=== PATIENT | male | born 1990 | race Caucasian/White ===

== ENCOUNTER 2020-12-19 14:18 | Inpatient (IN) ==
[2020-12-19 15:14] LABS: ABS Basophils 0.1 10^3/ul (0-0.2); ABS Eosinophils 0.1 10^3/ul (0-0.6); ABS Lymphocytes 1.8 10^3/ul (1.0-4.8); ABS Monocytes 0.5 10^3/ul (0-0.8); ABS Neutrophils 5.3 10^3/ul (1.5-7.7); Eosinophil % 1.5 %; Hematocrit 43 % (42-52); Hemoglobin 14.5 g/dL (14.0-18.0); Lymphocyte % 22.8 %; Mean Corpuscular HGB Conc 34 g/dL (31-36); Mean Corpuscular Hemoglobin 31 pg (27-31); Mean Corpuscular Volume 92 fL (80-94); Platelet Count 277 10^3/uL (150-450); Red Blood Count 4.68 10^6 /uL (4.18-5.48); Red Cell Distribution Width 13 % (10-15); White Blood Count 7.7 10^3/uL (3.5-10.8)
[2020-12-19 15:36] LABS: ALT 20 U/L (7-52); AST 25 U/L (13-39); Albumin 4.3 g/dL (3.2-5.2); Albumin/Globulin Ratio 1.5 (1-3); Alkaline Phosphatase 62 U/L (34-104); Anion Gap 6 mmol/L (2-11); BUN/Creatinine Ratio 15.8 (8-20); Blood Urea Nitrogen 19 mg/dL (6-24); CO2 Carbon Dioxide 27 mmol/L (22-32); Calcium 9.4 mg/dL (8.6-10.3); Chloride 105 mmol/L (101-111); EGFR African American 85.4 (>60); EGFR Non-African American 70.6 (>60); Globulin 2.8 g/dL (2-4); Glucose 102 mg/dL (70-100); Potassium 4.2 mmol/L (3.5-5.0); Sodium 138 mmol/L (135-145); Total Protein 7.1 g/dL (6.4-8.9)
[2020-12-19 15:43] LABS: Alcohol, S < 10 mg/dL (<10); Salicylate < 2.50 mg/dL (<30)
[2020-12-19 15:45] LABS: Acetaminophen < 15 mcg/mL
[2020-12-19 15:51] LABS: TSH Ultra Thyroid Stim Horm 1.86 mcIU/mL (0.34-5.60)
[2020-12-19] MEDS ORDERED: LORazepam 2 mg VIAL 1 ml ONE (16:26)
[2020-12-19 17:36] LABS: Urine Benzodiazepine Screen None Detected (None Detect); Urine Cannabinoids Screen Presumptive Positive (None Detect); Urine Opiates Screen None Detected (None Detect)
[2020-12-19 17:41] LABS: Urine Appearance Clear; Urine Bilirubin Negative (Negative); Urine Blood Negative (Negative); Urine Color Yellow; Urine Glucose Negative (Negative); Urine Ketones Negative (Negative); Urine Nitrite Negative (Negative); Urine Protein Negative (Negative); Urine Specific Gravity 1.019 (1.002-1.030); Urine Urobilinogen Negative (Negative)
[2020-12-19] MEDS ORDERED: diPHENhydraMINE IV 50 MG/ML 1 ml VIAL (BENADRYL) IM ONE (18:55)
[2020-12-19] MEDS ORDERED: Lorazepam PYXIS KEY PRN (18:56)
[2020-12-19] MEDS ORDERED: LORazepam 2 mg VIAL 1 ml IM ONE (18:56)
[2020-12-19] MEDS ORDERED: Haloperidol 5 mg/ml SDV IV/IM 5 MG/ML AMP IM ONE (18:56)
[2020-12-21] MEDS: Nicotine PATCH 21 MG/24 HR PATCH TRANSDERM SCH ×2 (00:50→09:20)
[2020-12-21] MEDS ORDERED: chlorproMAZINE 25 MG/ML 2 ML (50 MG) ONE ×3 (12:15→12:34)
[2020-12-21] MEDS ORDERED: chlorproMAZINE 25 MG/ML 2 ML (50 MG) IM ONE ×2 (12:40→12:42)
[2020-12-22] MEDS: Nicotine GUM 4MG FRUIT FLAVOR PO PRN (14:00)
[2020-12-22] MEDS: Nicotine PATCH 21 MG/24 HR PATCH TRANSDERM SCH (17:29)
[2020-12-23] MEDS: Nicotine PATCH 21 MG/24 HR PATCH TRANSDERM SCH (09:24)
[2020-12-24] MEDS: Nicotine PATCH 21 MG/24 HR PATCH TRANSDERM SCH (08:37)
[2020-12-24] MEDS: Nicotine GUM 4MG FRUIT FLAVOR PO PRN (08:38)
[2020-12-25] MEDS ORDERED: Paliperidone SUSTENNA 234 MG/1.5 ML IM ONE (09:00)
[2020-12-25] MEDS: Nicotine PATCH 21 MG/24 HR PATCH TRANSDERM SCH (11:01)
[2020-12-25] MEDS: Nicotine GUM 4MG FRUIT FLAVOR PO PRN ×2 (13:35→19:55)
[2020-12-26] MEDS: Nicotine GUM 4MG FRUIT FLAVOR PO PRN (10:07)
[2020-12-26] MEDS: Nicotine PATCH 21 MG/24 HR PATCH TRANSDERM SCH (10:25)
[2020-12-27] MEDS: Nicotine GUM 4MG FRUIT FLAVOR PO PRN (08:55)
[2020-12-27] MEDS: Nicotine PATCH 21 MG/24 HR PATCH TRANSDERM SCH (08:57)
[2020-12-27 14:39] LABS: ABS Basophils 0.1 10^3/ul (0-0.2); ABS Eosinophils 0.2 10^3/ul (0-0.6); ABS Lymphocytes 1.6 10^3/ul (1.0-4.8); ABS Monocytes 0.8 10^3/ul (0-0.8); ABS Neutrophils 5.5 10^3/ul (1.5-7.7); Eosinophil % 2.5 %; Hematocrit 41 % (42-52); Hemoglobin 13.9 g/dL (14.0-18.0); Mean Corpuscular HGB Conc 34 g/dL (31-36); Mean Corpuscular Hemoglobin 31 pg (27-31); Mean Corpuscular Volume 92 fL (80-94); Mean Platelet Volume 7.5 fL (7.4-10.4); Platelet Count 287 10^3/uL (150-450); Red Blood Count 4.49 10^6 /uL (4.18-5.48); Red Cell Distribution Width 13 % (10-15); White Blood Count 8.2 10^3/uL (3.5-10.8)
[2020-12-27 15:05] LABS: Albumin/Globulin Ratio 1.3 (1-3); Calcium 9.6 mg/dL (8.6-10.3); EGFR African American 116.1 (>60); Potassium 4.6 mmol/L (3.5-5.0); Total Bilirubin 0.4 mg/dL (0.2-1.0)
[2020-12-27 17:10] VITALS: BP 151/88
[2020-12-28] MEDS ORDERED: Paliperidone SUSTENNA 156 MG/1 ML IM ONE ×2 (09:00→10:00)
[2020-12-28] MEDS: Nicotine PATCH 21 MG/24 HR PATCH TRANSDERM SCH (11:06)
== END 2020-12-28 13:09 | DRG 885 ==
LOC: ED 14:18 → BSU 12-20 08:58 → ED 12-20 12:27 → BSU 12-28 00:44
PROVIDERS: ADMIT Psychiatry & Neurology Psychiatry; ATTEND Psychiatry & Neurology Psychiatry

== ENCOUNTER 2021-09-26 06:13 | Inpatient (IN) ==
[2021-09-26] MEDS ORDERED: Haloperidol 5 mg/ml SDV IV/IM 5 MG/ML AMP IM ONE (06:44)
[2021-09-26] MEDS ORDERED: diPHENhydraMINE IV 50 MG/ML 1 ml VIAL (BENADRYL) IM ONE (06:44)
[2021-09-26] MEDS ORDERED: Lorazepam PYXIS KEY PRN (06:44)
[2021-09-26] MEDS ORDERED: LORazepam 2 mg VIAL 1 ml IM ONE (06:44)
[2021-09-26 07:15] LABS: ABS Basophils 0.1 10^3/ul (0-0.2); ABS Eosinophils 0.1 10^3/ul (0-0.6); ABS Lymphocytes 2.1 10^3/ul (1.0-4.8); ABS Monocytes 0.8 10^3/ul (0-0.8); ABS Neutrophils 8.5 10^3/ul (1.5-7.7); Eosinophil % 0.7 %; Hematocrit 45 % (42-52); Hemoglobin 15.3 g/dL (14.0-18.0); Lymphocyte % 18.4 %; Mean Corpuscular HGB Conc 34 g/dL (31-36); Mean Corpuscular Hemoglobin 31 pg (27-31); Mean Corpuscular Volume 92 fL (80-94); Mean Platelet Volume 8.2 fL (7.4-10.4); Nucleated Red Blood Cells % 0.1; Platelet Count 331 10^3/uL (150-450); Red Blood Count 4.88 10^6 /uL (4.18-5.48); Red Cell Distribution Width 14 % (10-15); White Blood Count 11.6 10^3/uL (3.5-10.8)
[2021-09-26 07:32] LABS: ALT 56 U/L (7-52); AST 31 U/L (13-39); Albumin 4.5 g/dL (3.2-5.2); Albumin/Globulin Ratio 1.5 (1-3); Alkaline Phosphatase 63 U/L (35-149); Anion Gap 10 mmol/L (2-11); Blood Urea Nitrogen 21 mg/dL (6-24); CO2 Carbon Dioxide 25 mmol/L (22-32); Calcium 10.1 mg/dL (8.6-10.3); Chloride 100 mmol/L (101-111); Glucose 133 mg/dL (70-100); Potassium 4.4 mmol/L (3.5-5.0); Sodium 135 mmol/L (135-145); Total Protein 7.5 g/dL (6.4-8.9); eGFR CKD-EPI 86.7 (>60)
[2021-09-26 08:15] LABS: Acetaminophen < 15 mcg/mL; Alcohol, S < 13 mg/dL (<13); Salicylate < 2.50 mg/dL (<30)
[2021-09-26 08:31] LABS: TSH Ultra Thyroid Stim Horm 1.91 mcIU/mL (0.34-5.60)
[2021-09-26] MEDS ORDERED: chlorproMAZINE TAB 50 MG Q6H PRN AGITATION PO (23:00)
[2021-09-26] MEDS ORDERED: Haloperidol 5 mg/ml SDV IV/IM 5 MG/ML AMP ONE (23:31)
[2021-09-26] MEDS ORDERED: diPHENhydraMINE IV 50 MG/ML 1 ml VIAL (BENADRYL) ONE (23:31)
[2021-09-26] MEDS ORDERED: Lorazepam PYXIS KEY ONE (23:31)
[2021-09-26] MEDS ORDERED: LORazepam 2 mg VIAL 1 ml ONE (23:32)
[2021-09-26] MEDS ORDERED: Al Hydrox/Mg Hydrox/Simet LIQ 30 ML UDC PO PRN (23:59)
[2021-09-27] MEDS ORDERED: Nicotine GUM 4MG FRUIT FLAVOR PO ONE ×2 (11:30→14:37)
[2021-09-27] MEDS: Vitamin THERAPEUTIC TAB PO SCH (11:43)
[2021-09-27] MEDS ORDERED: Nicotine GUM 2MG FRUIT FLAVOR PO ONE (14:37)
[2021-09-27] MEDS ORDERED: Nicotine PATCH 21 MG/24 HR PATCH ONE (14:37)
[2021-09-27] MEDS: Nicotine GUM 4MG FRUIT FLAVOR PO PRN (14:48)
[2021-09-27] MEDS: Nicotine PATCH 21 MG/24 HR PATCH TRANSDERM SCH (14:51)
[2021-09-27] MEDS: Nicotine Lozenge mini 4 MG LOZNG.MINI MT PRN (16:22)
[2021-09-28] MEDS: Vitamin THERAPEUTIC TAB PO SCH (09:22)
[2021-09-28] MEDS: Nicotine PATCH 21 MG/24 HR PATCH TRANSDERM SCH (09:43)
[2021-09-28] MEDS: Nicotine Lozenge mini 4 MG LOZNG.MINI MT PRN (10:29)
[2021-09-28] MEDS: Nicotine GUM 4MG FRUIT FLAVOR PO PRN ×2 (17:20→20:07)
[2021-09-29] MEDS: Nicotine GUM 4MG FRUIT FLAVOR PO PRN ×2 (12:19→17:05)
[2021-09-29] MEDS: Vitamin THERAPEUTIC TAB PO SCH (12:32)
[2021-09-29] MEDS: Nicotine PATCH 21 MG/24 HR PATCH TRANSDERM SCH (12:54)
[2021-09-29] MEDS: Nicotine Lozenge mini 4 MG LOZNG.MINI MT PRN (14:49)
[2021-09-29] MEDS ORDERED: risperiDONE-M 1 mg Oradis TAB ONE (20:55)
[2021-09-29] MEDS ORDERED: risperiDONE-M 1 mg Oradis TAB PO ONE (20:55)
[2021-09-30] MEDS: Vitamin THERAPEUTIC TAB PO SCH (09:37)
[2021-09-30] MEDS: Nicotine PATCH 21 MG/24 HR PATCH TRANSDERM SCH (09:38)
[2021-09-30] MEDS: Nicotine GUM 4MG FRUIT FLAVOR PO PRN ×2 (09:39→12:39)
[2021-09-30] MEDS ORDERED: Paliperidone SUSTENNA 234 MG/1.5 ML IM ONE (10:47)
[2021-09-30 18:08] VITALS: BP 151/80
[2021-10-01] MEDS: Nicotine GUM 4MG FRUIT FLAVOR PO PRN (08:49)
[2021-10-01] MEDS: Nicotine PATCH 21 MG/24 HR PATCH TRANSDERM SCH (08:49)
[2021-10-01] MEDS ORDERED: Haloperidol 5 mg/ml SDV IV/IM 5 MG/ML AMP ONE (12:54)
[2021-10-01] MEDS ORDERED: Diazepam INJ CARPUJECT 5 MG/ML IM ONE (13:05)
[2021-10-01] MEDS: Vitamin THERAPEUTIC TAB PO SCH (13:58)
== END 2021-10-01 13:20 | DRG 885 ==
LOC: ED 06:13 → BSU 20:45
PROVIDERS: ADMIT Psychiatry & Neurology Psychiatry; ATTEND Psychiatry & Neurology Psychiatry